=== PATIENT | male | born 1995 | race Caucasian/White ===

== ENCOUNTER 2017-01-01 21:36 | Emergency (ER) | payer OTHER ==
[~2017-01-01] VITALS: Ht 172.7 cm; Wt 116.5 kg
[~2017-01-01 21:36] MED LIST: HYDR-902 PO; ONDA4TAB14 PO
[2017-01-01 21:44] VITALS: Ht 172.7 cm; Wt 116.5 kg
[2017-01-01] MEDS ORDERED: METHYLPREDNISOLONE 125 MG INJ IM ONE (22:30)
[2017-01-01] MEDS ORDERED: DIPHENHYDRAMINE 25 MG CAP PO ONE (22:30)
[2017-01-01] MEDS ORDERED: FAMOTIDINE 20 MG TAB PO ONE (22:30)
[2017-01-01] MEDS ORDERED: BEN25 PO (22:35)
--- NOTE | 2017-01-01 22:35 | ERD ---
ER Documentation Chief Complaint Date/Time DATE: 01/01/17 TIME: 22:32 Chief Complaint allergic rxn after eating mauritanian food 1 hr ago, lower lip swelling, no sob HPI Patient is a 21-year-old male here with mom who presents to the ED with lower lip swelling and itchiness 1 hour. Patient was eating Arabic food and developed symptoms soon afterwards. Denies tongue swelling, shortness of breath or difficulty breathing or speaking or swallowing. Denies drooling. Denies fever or chills. Eyes rash or shortness of breath. Denies chest pain or cough. Denies abdominal pain, nausea, vomiting or diarrhea. Denies headache or dizziness. No other complaints. ROS All systems reviewed and are negative except as per history of present illness. Medications Home Meds Active Scripts Diphenhydramine Hcl* (Benadryl*) 25 Mg Cap, 25 MG PO Q6, #30 CAP Prov:JC VELASQUEZ PA-C 01/01/17 Ondansetron (Ondansetron Odt) 4 Mg Tab.rapdis, 4 MG PO Q6H Y for NAUSEA AND/OR VOMITING, #30 TAB Prov:MARY JANE CHIN MD 03/27/16 Hydrocodone/Acetaminophen ([place] 10-325 Tablet) 1 Each Tablet, 1 TAB PO Q6H Y for PAIN, #7 TAB Prov:MARY JANE CHIN MD 03/27/16 Allergies Allergies: Uncoded Allergies: FRUIT (Allergy, Unknown, 01/01/17) PMhx/Soc Medical and Surgical Hx: pt denies Medical Hx, pt denies Surgical Hx History of Surgery: No Anesthesia Reaction: No Hx Neurological Disorder: No Hx Respiratory Disorders: Yes (Asthma) Hx Cardiac Disorders: No Hx Psychiatric Problems: No Hx Miscellaneous Medical Probl: No Hx Alcohol Use: No Hx Substance Use: Yes (marijuana) Hx Tobacco Use: No Smoking Status: Current some day smoker FmHx Family History: No coronary disease, No diabetes, No other Physical Exam Vitals Vital Signs Date Time Temp Pulse Resp B/P Pulse Ox O2 Delivery O2 Flow Rate FiO2 01/01/17 21:44 99.5 116 20 158/96 97 Physical Exam GENERAL: Well-developed, well-nourished male. Appears in no acute distress. Speaking in full sentences. HEAD: Normocephalic, atraumatic. EYES: Pupils are equally reactive bilaterally. EOMs grossly intact. No conjunctival erythema. ENT: Moist mucous membranes. No uvula deviation. No kissing tonsils. No exudates. NECK: Supple. No lymphadenopathy or thyromegaly. No meningismus. negative kernig. negative brudinski. LUNG: Clear to auscultation bilaterally. No rhonchi, wheezing, rales or coarse breath sounds. HEART: Regular rate and rhythm. No murmurs, rubs or gallops. Extremities: Equal pulses bilaterally. No peripheral clubbing, cyanosis or edema. No unilateral leg swelling. NEUROLOGIC: Alert and oriented. Moving all four extremities. 5/5 strength in all extremities. Normal speech. Steady gait. SKIN: Normal color. Warm and dry, minimal swelling in lower lid.. Capillary refill < 2 seconds Results 24 hrs Current Medications Medications (Trade) Dose Ordered Sig/Arleen Route PRN Reason Start Time Stop Time Status Last Admin Dose Admin Methylprednisolone Sodium Succinate (Solu-Medrol) 125 mg ONCE ONCE IM 01/01/17 22:30 01/01/17 22:31 DC 01/01/17 22:26 Diphenhydramine HCl (Benadryl) 25 mg ONCE ONCE PO 01/01/17 22:30 01/01/17 22:31 DC 01/01/17 22:26 Famotidine (Pepcid) 20 mg ONCE ONCE PO 01/01/17 22:30 01/01/17 22:31 DC 01/01/17 22:26 Procedures/MDM ER COURSE: I kept the patient and/or family informed of laboratory and diagnostic imaging results throughout the emergency room course. MEDICATIONS Solu-Medrol 125 mg IM, Pepcid and Benadryl. Tolerated well with no adverse reaction. MEDICAL DECISION MAKING: This is a 21-year-old male who presents with allergic reaction 1 hour. Vital signs were reviewed. Patient is afebrile. Patient is not hypoxic. Patient is nontoxic or ill-appearing. Patient has allergic reaction. Low suspicion for angioedema, respiratory distress, anaphylaxis. Low suspicion for necrotizing fasciitis, SJS, toxic epidermal necrolysis, Kawasaki, erythema multiforme, gangrene, scarlet fever, meningococcemia, sepsis, anaphylaxis, sepsis, deep space infection, or foreign body. I reexamined the patient after administration of medication and he had improvement in symptoms and did not show signs of DISCHARGE: At this time, patient is stable for discharge and outpatient management with no new complaints during the ER course. Patient was sent home with ruby and amos Patient will be discharged home with instructions to recheck for new or worsening symptoms such as fever, nausea, weakness, LOC and to follow up with primary care in the next 1-2 days. Patient was advised to return to the ER for any new or worsening symptoms. Plan was discussed and patient and/or family understands and agrees. Home instructions were given. Departure Diagnosis: Primary Impression: Allergic reaction Encounter type: initial encounter Qualified Code: T78.40XA - Allergic reaction, initial encounter Condition: Stable JC VELASQUEZ PA-C Jan 01, 2017 22:35
== END 2017-01-01 23:18 | disposition home or self-care (01) ==
LOC: FTE 21:36
DX: R60.0 Localized edema (principal); J45.909 Unspecified asthma, uncomplicated; F17.210 Nicotine dependence, cigarettes, uncomplicated
CPT/HCPCS: 96372; J2930; Z7502; Z7610

== ENCOUNTER 2017-01-28 02:51 | Emergency (ER) | payer OTHER ==
[~2017-01-28] VITALS: Wt 116.5 kg
[~2017-01-28 02:51] MED LIST changes: +BEN25 PO
[2017-01-28] MEDS ORDERED: ONDANSETRON (ODT) 4 MG TAB ODT STA (04:06)
[2017-01-28] MEDS ORDERED: KETOROLAC 30 MG INJ IM STA (04:06)
[2017-01-28] MEDS ORDERED: BELLADONNA/PHENOBARBITAL TAB PO STA (04:06)
[2017-01-28] MEDS ORDERED: LIDOCAINE/MYLANTA 40 ML BTL PO STA (04:06)
[2017-01-28] MEDS ORDERED: FAMOTIDINE 20 MG TAB PO STA (04:06)
[2017-01-28 04:39] LABS: BASOPHIL # 0.1 10^3/ul (0.0-0.1); BASOPHILS % 0.6 % (0.0-2.0); EOSINOPHILS # 0.2 10^3/ul (0.0-0.5); EOSINOPHILS % 1.9 % (0.0-7.0); HEMATOCRIT 43.8 % (42.0-52.0); HEMOGLOBIN 14.8 g/dl (14.0-18.0); LYMPHOCYTES # 1.8 10^3/ul (0.8-2.9); LYMPHOCYTES % 15.6 % (18.0-55.0); MEAN CORPUSCULAR HEMOGLOBIN 29.1 pg (29.0-33.0); MEAN CORPUSCULAR HGB CONC 33.8 g/dl (32.0-37.0); MEAN CORPUSCULAR VOLUME 86.1 fl (72.0-104.0); MEAN PLATELET VOLUME 10.1 fl (7.4-10.4); MONOCYTE # 1.2 10^3/ul (0.3-0.9); MONOCYTES % 10.2 % (0.0-13.0); NEUTROPHILS % 71.2 % (30.0-74.0); PLATELET COUNT 358 10^3/UL (140-415); RED BLOOD COUNT 5.09 10^6/ul (4.70-6.10); RED CELL DISTRIBUTION WIDTH 13.6 % (11.5-14.5); WHITE BLOOD COUNT 11.8 10^3/ul (4.8-10.8)
[2017-01-28] MEDS ORDERED: NAPR-260 PO (04:51)
[2017-01-28] MEDS ORDERED: FAMO40TA52 PO (04:51)
[2017-01-28] MEDS ORDERED: MAG355OR14 PO (04:51)
[2017-01-28 05:00] VITALS: BP 118/67; PULSE 83; RESP 15; TEMP 98.7
[2017-01-28 05:02] LABS: ALBUMIN 4.3 g/dl (3.3-4.9); ALBUMIN/GLOBULIN RATIO 1.59; BILIRUBIN,INDIRECT 0.3 mg/dl (0-1.1); BILIRUBIN,TOTAL 0.3 mg/dl (0.2-1.3); CALCIUM 9.8 mg/dl (8.4-10.2); CREATININE 0.87 mg/dl (0.61-1.24); POTASSIUM 4.6 mmol/L (3.5-5.1)
--- NOTE | 2017-01-28 05:15 | ERD ---
ER Documentation Chief Complaint Date/Time DATE: 01/28/17 TIME: 05:12 Chief Complaint AP with hx of pancreatitis. started at 12 noon yesterday HPI 21-year-old man complains of epigastric abdominal pain after eating a meal last night. He has had multiple similar episodes in the past and has a history of pancreatitis. Last year CT scan revealed inflamed pancreas. Patient states he has had a burning sensation in his epigastrium and has had belching. He has had no vomiting, no fevers or chills, no diarrhea, no blood per rectum, no headache or blurry vision. Patient denies using medications for his symptoms. ROS All systems reviewed and are negative except as per history of present illness. Medications Home Meds Active Scripts Naproxen* (Naprosyn*) 500 Mg Tablet, 500 MG PO BID Y for PAIN AND/OR INFLAMMATION, #30 TAB Prov:CLARK RAI MD 01/28/17 Famotidine* (Famotidine*) 40 Mg Tablet, 40 MG PO HS, #30 TAB Prov:CLARK RAI MD 01/28/17 Mag Hydrox/Al Hydrox/Simeth (Maalox Advanced Suspension) 355 Ml Oral.susp, 2 TSP PO TID for PAIN, #24 OZ Prov:CLARK RAI MD 01/28/17 Diphenhydramine Hcl* (Benadryl*) 25 Mg Cap, 25 MG PO Q6, #30 CAP Prov:JC VELASQUEZ PA-C 01/01/17 Ondansetron (Ondansetron Odt) 4 Mg Tab.rapdis, 4 MG PO Q6H Y for NAUSEA AND/OR VOMITING, #30 TAB Prov:MARY JANE CHIN MD 03/27/16 Hydrocodone/Acetaminophen ([place] 10-325 Tablet) 1 Each Tablet, 1 TAB PO Q6H Y for PAIN, #7 TAB Prov:MARY JANE CHIN MD 03/27/16 Allergies Allergies: Uncoded Allergies: FRUIT (Allergy, Unknown, 01/01/17) PMhx/Soc Obesity, pancreatitis History of Surgery: No Anesthesia Reaction: No Hx Neurological Disorder: No Hx Respiratory Disorders: Yes (Asthma) Hx Cardiac Disorders: No Hx Psychiatric Problems: No Hx Miscellaneous Medical Probl: No Hx Alcohol Use: No Hx Substance Use: Yes (marijuana) Hx Tobacco Use: No Smoking Status: Never smoker FmHx Family History: No diabetes Physical Exam Vitals Vital Signs Date Time Temp Pulse Resp B/P Pulse Ox O2 Delivery O2 Flow Rate FiO2 01/28/17 05:00 98.7 83 15 118/67 99 Room Air 01/28/17 03:59 98.6 94 14 128/85 99 Room Air 01/28/17 03:10 98.5 94 20 121/83 97 Physical Exam GENERAL: Well-developed, well-nourished, well-hydrated, in no apparent distress , looks nontoxic in appearance HEENT: Moist mucous membranes, pink conjunctiva, no cervical spine tenderness or step-off deformities, no goiter, no jaundice or icterus, extraocular movements intact without pain. No submandibular induration, and no pharyngeal erythema NEURO: Alert and oriented 3, cranial nerves II through XII intact bilaterally, pupils equal round reactive to light, no focal deficits or facial asymmetry, sensation intact distally Strength 5/5 in upper and lower extremities bilaterally CARDIAC: Regular rate and rhythm, no murmurs rubs or gallops LUNGS: Clear bilaterally no wheezing crackles or stridor ABDOMEN: Soft nontender, no guarding, no rigidity, no rebound, no psoas sign no obturator sign. Normoactive bowel sounds SKIN: Warm and dry to touch, no abrasions, contusions, or hematomas, no lacerations, no ecchymosis, no target lesions, and without ulcers EXTREMITIES: No clubbing cyanosis or edema, calves are bilaterally symmetrical, no Homans sign, no popliteal cord sign. Distal pulses equal and bilateral PSYCH: Normal affect without agitation or irritability Result Diagram: 01/28/176 01/28/17425 Results 24 hrs Laboratory Tests Test 01/28/17 04:26 White Blood Count 11.810^3/ul Red Blood Count 5.0910^6/ul Hemoglobin 14.8g/dl Hematocrit 43.8% Mean Corpuscular Volume 86.1fl Mean Corpuscular Hemoglobin 29.1pg Mean Corpuscular Hemoglobin Concent 33.8g/dl Red Cell Distribution Width 13.6% Platelet Count 24333^3/UL Mean Platelet Volume 10.1fl Neutrophils % 71.2% Lymphocytes % 15.6% Monocytes % 10.2% Eosinophils % 1.9% Basophils % 0.6% Nucleated Red Blood Cells % 0.0/100WBC Neutrophils # (Manual) 8.410^3/ul Lymphocytes # 1.810^3/ul Monocytes # 1.210^3/ul Eosinophils # 0.210^3/ul Basophils # 0.110^3/ul Nucleated Red Blood Cells # 0.010^3/ul Sodium Level 142mmol/L Potassium Level 4.6mmol/L Chloride Level 105mmol/L Carbon Dioxide Level 27mmol/L Anion Gap 15 Blood Urea Nitrogen 14mg/dl Creatinine 0.87mg/dl Glucose Level 107mg/dl Calcium Level 9.8mg/dl Total Bilirubin 0.3mg/dl Direct Bilirubin 0.00mg/dl Indirect Bilirubin 0.3mg/dl Aspartate Amino Transf (AST/SGOT) 24IU/L Alanine Aminotransferase (ALT/SGPT) 52IU/L Alkaline Phosphatase 80IU/L Total Protein 7.0g/dl Albumin 4.3g/dl Globulin 2.70g/dl Albumin/Globulin Ratio 1.59 Lipase 182U/L Current Medications Medications (Trade) Dose Ordered Sig/Arleen Route PRN Reason Start Time Stop Time Status Last Admin Dose Admin Famotidine (Pepcid) 40 mg ONCE STAT PO 01/28/17 04:06 01/28/17 04:08 DC 01/28/17 04:29 Miscellaneous Medication (Gi Cocktail (2)) 40 ml ONCE STAT PO 01/28/17 04:06 01/28/17 04:08 DC 01/28/17 04:29 Belladonna/ Phenobarbital () 2 tab ONCE STAT PO 01/28/17 04:06 01/28/17 04:08 DC 01/28/17 04:30 Ketorolac Tromethamine (Toradol) 30 mg ONCE STAT IM 01/28/17 04:06 01/28/17 04:08 DC 01/28/17 04:30 Ondansetron HCl (Zofran Odt) 4 mg ONCE STAT ODT 01/28/17 04:06 01/28/17 04:08 DC 01/28/17 04:29 Procedures/MDM Patient was placed on surveillance monitor rhythm strip revealed a sinus rhythm at about 80 bpm with upright P and T waves. I administered Toradol 30 mg intramuscular injection, Zofran 4 mg p.o., GI cocktail 30 cc p.o., and famotidine 40 mg p.o. with good response. CBC and electrolytes are normal, liver function tests normal, lipase normal. Differential diagnoses considered, included but not limited to acute coronary syndrome, pulmonary embolism, aortic dissection, abdominal aortic aneurysm, sepsis, stroke, meningitis, encephalitis, pneumonia, appendicitis, cholecystitis , bowel obstruction, pyelonephritis, nephrolithiasis, cystitis, as well as metabolic, hematologic, and electrolyte abnormalities. As well as abscess, cellulitis, fractures, and dislocations. Patient feels much better at this time, and vital signs are normal, symptoms have improved. I did give strict instructions to return to the ED if symptoms continue or worsen, patient will otherwise follow-up with primary care physician. Patient understood instructions and agreed to plan. Disclaimer: Inadvertent spelling and grammatical errors are likely due to EHR/ dictation software use and do not reflect on the overall quality of patient care. Also, please note that the electronic time recorded on this note does not necessarily reflect the actual time of the patient encounter. Departure Diagnosis: Primary Impression: Abdominal pain Abdominal location: epigastric Qualified Code: R10.13 - Epigastric pain Additional Impression: GERD (gastroesophageal reflux disease) Esophagitis presence: with esophagitis Qualified Code: K21.0 - Gastroesophageal reflux disease with esophagitis Condition: Good Patient Instructions: Gastritis Vs. Ulcer, Epigastric Pain (Uncertain Cause) Referrals: GIOVANNI NUÑEZ (PCP) CLARK RAI MD Jan 28, 2017 05:15
== END 2017-01-28 05:24 | disposition home or self-care (01) ==
LOC: E/R 02:51
DX: R10.13 Epigastric pain (principal); J45.909 Unspecified asthma, uncomplicated; K21.0 Gastro-esophageal reflux disease with esophagitis
CPT/HCPCS: 36415; 80053; 83690; 85025; 96372; J1885; Z7502; Z7610